=== PATIENT | male | born 1990 | race Caucasian/White ===

== ENCOUNTER → 2019-06-01 | Outpatient (REF) | payer OTHER | LOC: M SMT 13:36 | PROVIDERS: ATTEND Urology | DX: Z30.2 Encounter for sterilization (principal) ==

== ENCOUNTER → 2019-07-25 | Outpatient (REF) | payer OTHER ==
[2019-07-25 13:50] LABS: SEMEN APPEARANCE OPAQUE (OPAQUE); SEMEN VISCOSITY VISCOUS (LIQUID); WBC CONCENTRATION <=1 M/ml (<=1 M/ml)
== END ==
LOC: M SFHCPLAZ 12:54
PROVIDERS: ATTEND Urology
DX: Z98.52 Vasectomy status (principal)

== ENCOUNTER → 2019-09-17 | Outpatient (REF) | payer OTHER ==
[2019-09-17 11:20] LABS: SEMEN APPEARANCE OPAQUE (OPAQUE); SEMEN VOLUME 2.3 ml (2.0-5.0)
[2019-09-17 11:21] LABS: SEMEN VISCOSITY LIQUID (LIQUID); WBC CONCENTRATION <=1 M/ml (<=1 M/ml)
== END ==
LOC: M SMT 11:15
PROVIDERS: ATTEND Urology
DX: N46.9 Male infertility, unspecified (principal)

== ENCOUNTER → 2019-10-18 | Outpatient (CLI) | payer OTHER ==
--- NOTE | 2019-10-23 10:22 | SLEEPCENT ---
DATE OF STUDY: 10/18/2019 ORDERED BY: Zoya Peraza Nocturnal polysomnography was performed for evaluation of sleep physiology in this patient with a history of excessive somnolence and nonrestorative sleep. 7 hours and 6 minutes of data were reviewed. There were 395 minutes of sleep identified. Sleep latency was short at 3 minutes. Rapid eye movement (REM) latency was normal at 52 minutes. Sleep architecture was fragmented. There were some REM cycles noted. Overall sleep efficiency was 93.8%. The patient's electrocardiogram showed sinus rhythm with an average heart rate of 70 beats per minute. Electroencephalogram (EEG) showed normal waveforms for awake and sleep stages. There were 235 respiratory events identified of 10 seconds in duration or greater for an apnea-hypopnea index of 35.7. The events were primarily obstructive, not exclusive to sleep stage nor body posture. Arousals from respiratory events occurred 4.9 times per hour and oxygen desaturations were seen into the 80s. There was minimal activity in the limb EMG leads. Snoring was noted over the entire study. IMPRESSION: Obstructive sleep apnea syndrome (G47.33). Apnea-hypopnea index 35.7. RECOMMENDATION: The patient should be encouraged to return to the sleep disorder center for pressure therapy. In the interim, alcohol and sedative avoidance should be practiced and caution exercised during the operation of motor vehicles.
== END ==
LOC: M SLEEP 19:49
PROVIDERS: ATTEND Nurse Practitioner Adult Health
DX: G47.30 Sleep apnea, unspecified (principal)

== ENCOUNTER → 2019-10-26 | Outpatient (CLI) | payer OTHER ==
--- NOTE | 2019-10-30 09:28 | SLEEPCENT ---
DATE OF PROCEDURE: 10/26/2019 ORDERED BY: Zoya Peraza Nocturnal polysomnography was performed for the titration of pressure therapy in this patient with obstructive sleep apnea syndrome and apnea-hypopnea index of 35. For testing, the patient was fit with a ResMed Air Fit F30 full face mask of medium size and 5 cm of water pressure were applied to the circuit and the lights were extinguished. 6 hours and 57 minutes of data were reviewed. There were 279.5 minutes of sleep identified. Sleep latency was prolonged at 46 minutes. Rapid eye movement (REM) latency was normal at 57 minutes. Sleep architecture was fair to good with 2 REM cycles noted. Overall sleep efficiency was 67.8%. The patient's electrocardiogram showed a sinus rhythm with an average heart rate of 68 beats per minute. Electroencephalogram (EEG) showed normal waveforms for awake and sleep. Increases in C-PAP pressure resulted in the emergence of central events. These, however, were not associated with significant oxygen desaturation. Best sleep was seen on C-PAP at a pressure of +8. There was minimal activity in the limb leads. IMPRESSION: Obstructive sleep apnea syndrome (G47.33). RECOMMENDATION: Nightly use of pressure therapy at 8 cm of water appears to optimize sleep progression. There was some occurrence of central apneas which would warrant close clinical followup. Should the patient have persistence of symptoms, referral back to the sleep disorder center for second night of titration once he is accustomed to the device may be helpful.
== END ==
LOC: M SLEEP 19:35
PROVIDERS: ATTEND Nurse Practitioner Adult Health
DX: G47.33 Obstructive sleep apnea (adult) (pediatric) (principal)

== ENCOUNTER 2020-09-10 22:42 | Emergency (ER) | payer OTHER ==
[~2020-09-10] VITALS: Ht 182.9 cm; Wt 158.0 kg
[2020-09-10] MEDS ORDERED: ROSU10TA6 PO (23:01)
[2020-09-10 23:17] LABS: BASO # 0.1 10^3/uL (0.0-0.2); BASO % 0.6 % (0.0-1.0); EOS # 0.1 10^3/uL (0.0-0.5); EOS % 1.3 % (0.0-3.0); HEMATOCRIT 44.4 % (42.0-52.0); HEMOGLOBIN 14.6 g/dl (13.5-17.5); LYMPH # 2.3 10^3/uL (1.5-5.0); LYMPH % 25.6 % (24.0-44.0); MEAN CORPUSCULAR HEMOGLOBIN 28.2 pg (27.0-33.0); MEAN CORPUSCULAR HGB CONC 32.9 g/dl (32.0-36.5); MEAN CORPUSCULAR VOLUME 85.9 fl (80.0-96.0); MONO # 0.7 10^3/uL (0.0-0.8); MONO % 8.1 % (0.0-5.0); NEUTROPHILS # 5.7 10^3/uL (1.5-8.5); NEUTROPHILS % 64.1 % (36.0-66.0); PLATELET COUNT, AUTOMATED 205 10^3/uL (150-450); RED BLOOD COUNT 5.17 10^6/uL (4.30-6.10); WHITE BLOOD COUNT 8.9 10^3/uL (4.0-10.0)
[2020-09-10] MEDS ORDERED: KETOROLAC 30 MG/ML 1ML VIAL IV ONE (23:30)
--- NOTE | 2020-09-10 23:40 | REPVR ---
PROCEDURE INFORMATION: Exam: XR Chest, 1 View Exam date and time: 09/10/2020 11:07 PM Age: 30 years old Clinical indication: Chest pain TECHNIQUE: Imaging protocol: XR of the chest Views: 1 view. COMPARISON: No relevant prior studies available. FINDINGS: Lungs: Unremarkable. No consolidation. Pleural space: Unremarkable. No pleural effusion. No pneumothorax. Heart/Mediastinum: Unremarkable. No cardiomegaly. Bones/joints: Unremarkable. IMPRESSION: No acute findings. Electronically signed by: Valeriy Clarke On 09/10/2020 23:40:37 PM
[2020-09-10 23:47] LABS: ALBUMIN 3.8 GM/DL (3.2-5.2); ALT/SGPT 61 U/L (12-78); BILIRUBIN,DIRECT 0.2 MG/DL (0.0-0.2); BILIRUBIN,TOTAL 0.4 MG/DL (0.2-1.0); BLOOD UREA NITROGEN 18 MG/DL (7-18); CARBON DIOXIDE LEVEL 29 MEQ/L (21-32); CHLORIDE LEVEL 107 MEQ/L (98-107); CK-MB VALUE MASS 1.3 NG/ML (<3.6); CPK CREATINE PHOSPHOKINASE 225 U/L (39-308); CREATININE FOR GFR 1.04 MG/DL (0.70-1.30); GLOMERULAR FILTRATION RATE > 60.0 (>60); GLUCOSE, FASTING 114 MG/DL (70-100); LIPASE 173 U/L (73-393); MB/CK RELATIVE INDEX 0.58 (< OR =4); POTASSIUM SERUM 4.1 MEQ/L (3.5-5.1); SODIUM LEVEL 139 MEQ/L (136-145); TOTAL PROTEIN 7.1 GM/DL (6.4-8.2); TROPONIN I < 0.02 NG/ML (< 0.10)
[2020-09-11] MEDS ORDERED: NAPR-837 PO (01:08)
[2020-09-11 01:15] VITALS: BP 128/61
--- NOTE | 2020-09-12 08:00 | ECGEPIP ---
[facility] - ED Test Date: 2020-09-10 Pat Name: MAYNOR BOOTH Department: Room: - Gender: Male Assisted Living Care Manager: : 1990 Requested By: ANAMIKA Lowry Order Number: [id number] Reading MD: Arleen Serrano Measurements Intervals [place] Rate: 87 P: 37 GA: 170 QRS: 43 QRSD: 96 T: 7 QT: 363 QTc: 438 Interpretive Statements SINUS RHYTHM No prior Electronically Signed on 09-12-2020 8:00:31 EST by Arleen Serrano
== END 2020-09-11 01:26 | disposition home or self-care (01) ==
LOC: M ED 22:42
DX: R07.89 Other chest pain (principal); R06.02 Shortness of breath; E78.5 Hyperlipidemia, unspecified; Z79.899 Other long term (current) drug therapy
CPT/HCPCS: 71045; 80053; 82248; 82550; 82553; 83690; 84484; 85025; 93005; 93041; 94760; 96374; 99285; J1885

== ENCOUNTER → 2021-04-19 | Outpatient (CLI) | payer OTHER ==
[~2021-04-19] MED LIST: NAPR-837 PO; ROSU10TA6 PO
[2021-04-19 12:22] LABS: BASO % 0.7 % (0.0-1.0); EOS # 0.1 10^3/uL (0.0-0.5); EOS % 1.8 % (0.0-3.0); HEMATOCRIT 45.1 % (42.0-52.0); LYMPH # 1.8 10^3/uL (1.5-5.0); LYMPH % 31.7 % (24.0-44.0); MEAN CORPUSCULAR HEMOGLOBIN 28.2 pg (27.0-33.0); MEAN CORPUSCULAR HGB CONC 33.3 g/dl (32.0-36.5); MEAN CORPUSCULAR VOLUME 84.8 fl (80.0-96.0); MONO # 0.5 10^3/uL (0.0-0.8); MONO % 8.5 % (2.0-8.0); NEUTROPHILS # 3.2 10^3/uL (1.5-8.5); NEUTROPHILS % 57.1 % (36.0-66.0); PLATELET COUNT, AUTOMATED 212 10^3/uL (150-450); RED BLOOD COUNT 5.32 10^6/uL (4.30-6.10); WHITE BLOOD COUNT 5.6 10^3/uL (4.0-10.0)
[2021-04-19 12:52] LABS: ALBUMIN 4.3 GM/DL (3.2-5.2); ALT/SGPT 111 U/L (12-78); BLOOD UREA NITROGEN 13 MG/DL (7-18); CALCIUM LEVEL 9.5 MG/DL (8.5-10.1); CARBON DIOXIDE LEVEL 27 MEQ/L (21-32); CHLORIDE LEVEL 107 MEQ/L (98-107); CREATININE FOR GFR 0.95 MG/DL (0.70-1.30); GLOMERULAR FILTRATION RATE > 60.0 (>60); GLUCOSE, FASTING 93 MG/DL (70-100); POTASSIUM SERUM 4.2 MEQ/L (3.5-5.1); SODIUM LEVEL 141 MEQ/L (136-145); TOTAL PROTEIN 7.2 GM/DL (6.4-8.2)
== END ==
LOC: M LAB 11:54
PROVIDERS: ATTEND Internal Medicine
DX: E66.9 Obesity, unspecified (principal)

== ENCOUNTER → 2021-11-25 | Outpatient (REF) | payer OTHER | LOC: M LAB REF 16:34 | PROVIDERS: ATTEND Surgery | DX: D48.5 Neoplasm of uncertain behavior of skin (principal) ==

== ENCOUNTER → 2022-10-21 | Outpatient (CLI) | payer OTHER ==
[2022-10-21 11:02] LABS: HEMATOCRIT 47.4 % (42.0-52.0); HEMOGLOBIN 15.5 g/dl (13.5-17.5); MEAN CORPUSCULAR HEMOGLOBIN 27.5 pg (27.0-33.0); MEAN CORPUSCULAR HGB CONC 32.7 g/dl (32.0-36.5); PLATELET COUNT, AUTOMATED 246 10^3/uL (150-450); RED BLOOD COUNT 5.64 10^6/uL (4.30-6.10); WHITE BLOOD COUNT 7.8 10^3/uL (4.0-10.0)
[2022-10-21 11:29] LABS: ALBUMIN 4.2 G/DL (3.2-5.2); ALKALINE PHOSPHATASE 72 U/L (46-116); ALT/SGPT 52 U/L (7.0-40); AST/SGOT 26 U/L (<34); BILIRUBIN,TOTAL 0.8 MG/DL (0.3-1.2); BLOOD UREA NITROGEN 18 MG/DL (9-23); CALCIUM LEVEL 9.6 MG/DL (8.5-10.1); CARBON DIOXIDE LEVEL 29 MMOL/L (20-31); CHLORIDE LEVEL 103 MMOL/L (98-107); CHOLESTEROL LEVEL 231 MG/DL (<200); CHOLESTEROL RISK RATIO 6.29 (<5); CREATININE FOR GFR 0.93 MG/DL (0.70-1.30); GLOMERULAR FILTRATION RATE > 60.0 (>60); GLUCOSE, FASTING 95 MG/DL (60-100); HDL CHOLESTEROL 36.7 MG/DL (>40); LDL CHOLESTEROL 156.7 MG/DL (<100); NON-HDL-C 194 MG/DL; POTASSIUM SERUM 4.7 MMOL/L (3.5-5.1); SODIUM LEVEL 140 MMOL/L (136-145); TOTAL PROTEIN 7.2 G/DL (5.7-8.2); TRIGLYCERIDES LEVEL 188 MG/DL (<150)
== END ==
LOC: M WUC 09:04
PROVIDERS: ATTEND Internal Medicine
DX: E78.5 Hyperlipidemia, unspecified (principal); R07.89 Other chest pain

== ENCOUNTER 2022-11-07 21:09 | Emergency (ER) | payer OTHER ==
[~2022-11-07] VITALS: Ht 182.9 cm; Wt 160.4 kg
[2022-11-07 21:11] VITALS: BP 146/79
[2022-11-07] MEDS ORDERED: OMEP1CAP73 PO (21:17)
[2022-11-07] MEDS ORDERED: ROSU20TA5 PO (21:17)
[2022-11-07 21:55] LABS: BASO # 0.1 10^3/uL (0.0-0.2); BASO % 0.9 % (0.0-1.0); EOS # 0.2 10^3/uL (0.0-0.5); EOS % 1.8 % (0.0-3.0); HEMATOCRIT 46.3 % (42.0-52.0); HEMOGLOBIN 14.9 g/dl (13.5-17.5); LYMPH # 2.3 10^3/uL (1.5-5.0); MEAN CORPUSCULAR HEMOGLOBIN 27.1 pg (27.0-33.0); MEAN CORPUSCULAR HGB CONC 32.2 g/dl (32.0-36.5); MEAN CORPUSCULAR VOLUME 84.2 fl (80.0-96.0); MONO # 0.9 10^3/uL (0.0-0.8); MONO % 9.6 % (2.0-8.0); NEUTROPHILS # 5.4 10^3/uL (1.5-8.5); NEUTROPHILS % 61.2 % (36.0-66.0); PLATELET COUNT, AUTOMATED 211 10^3/uL (150-450); WHITE BLOOD COUNT 8.9 10^3/uL (4.0-10.0)
[2022-11-07 22:16] LABS: LIPASE 52 U/L (12-53)
[2022-11-07 22:17] LABS: CK-MB VALUE MASS < 1.0 NG/ML (<3.6)
[2022-11-07 22:18] LABS: BLOOD UREA NITROGEN 16 MG/DL (9-23); CALCIUM LEVEL 9.9 MG/DL (8.5-10.1); CARBON DIOXIDE LEVEL 28 MMOL/L (20-31); CHLORIDE LEVEL 108 MMOL/L (98-107); CPK CREATINE PHOSPHOKINASE 171 U/L (46-171); CREATININE FOR GFR 0.99 MG/DL (0.70-1.30); GLOMERULAR FILTRATION RATE > 60.0 (>60); GLUCOSE, FASTING 90 MG/DL (60-100); MB/CK RELATIVE INDEX 0.58 (< OR =4); POTASSIUM SERUM 4.2 MMOL/L (3.5-5.1); SODIUM LEVEL 143 MMOL/L (136-145)
[2022-11-08] MEDS ORDERED: ISOVUE-370 76% 100ML VIAL As Ordered ONE (00:09)
[2022-11-08 01:16] LABS: RSV AMPLIFICATION NEGATIVE (NEGATIVE)
[2022-11-08] MEDS ORDERED: GI COCKTAIL 50ML BTL(HYOSCYAMINE/MAALOX/LIDOCAINE VISCOUS)(1:3:1) PO ONE (02:00)
[2022-11-08 02:30] VITALS: O2SAT 95
== END 2022-11-08 03:12 | disposition home or self-care (01) ==
LOC: M ED 21:09
DX: R07.89 Other chest pain (principal); E78.5 Hyperlipidemia, unspecified; K21.9 Gastro-esophageal reflux disease without esophagitis; G47.33 Obstructive sleep apnea (adult) (pediatric)

== ENCOUNTER → 2024-03-21 | Outpatient (CLI) | payer OTHER ==
[~2024-03-21] MED LIST changes: +OMEP1CAP73 PO; -ROSU10TA6 PO; +ROSU10TA61 PO; +ROSU20TA61 PO
[2024-03-21 12:43] LABS: BASO # 0.1 10^3/uL (0.0-0.2); BASO % 0.7 % (0.0-1.0); EOS # 0.1 10^3/uL (0.0-0.5); EOS % 1.1 % (0.0-3.0); HEMATOCRIT 47.7 % (42.0-52.0); HEMOGLOBIN 15.6 g/dl (13.5-17.5); LYMPH # 2.2 10^3/uL (1.5-5.0); LYMPH % 25.5 % (24.0-44.0); MEAN CORPUSCULAR HEMOGLOBIN 27.7 pg (27.0-33.0); MEAN CORPUSCULAR HGB CONC 32.7 g/dl (32.0-36.5); MEAN CORPUSCULAR VOLUME 84.6 fl (80.0-96.0); MONO # 0.6 10^3/uL (0.0-0.8); MONO % 7.2 % (2.0-8.0); NEUTROPHILS # 5.7 10^3/uL (1.5-8.5); NEUTROPHILS % 64.8 % (36.0-66.0); PLATELET COUNT, AUTOMATED 232 10^3/uL (150-450); RED BLOOD COUNT 5.64 10^6/uL (4.30-6.10); WHITE BLOOD COUNT 8.8 10^3/uL (4.0-10.0)
[2024-03-21 13:13] LABS: THYROID STIMULATING HORMONE 2.423 uIU/ML (0.55-4.78)
[2024-03-21 13:16] LABS: ALKALINE PHOSPHATASE 72 U/L (46-116); ALT/SGPT 53 U/L (7.0-40); AST/SGOT 17 U/L (<34); BILIRUBIN,TOTAL 1.1 MG/DL (0.3-1.2); BLOOD UREA NITROGEN 14 MG/DL (9-23); CALCIUM LEVEL 9.5 MG/DL (8.5-10.1); CARBON DIOXIDE LEVEL 30 MMOL/L (20-31); CHLORIDE LEVEL 104 MMOL/L (98-107); CHOLESTEROL LEVEL 178 MG/DL (<200); CHOLESTEROL RISK RATIO 4.52 (<5); CREATININE FOR GFR 0.86 MG/DL (0.70-1.30); GLOMERULAR FILTRATION RATE > 60.0 (>60); GLUCOSE, FASTING 82 MG/DL (60-100); HDL CHOLESTEROL 39.3 MG/DL (>40); LDL CHOLESTEROL 104.3 MG/DL (<100); NON-HDL-C 138.7 MG/DL; POTASSIUM SERUM 4.4 MMOL/L (3.5-5.1); SODIUM LEVEL 141 MMOL/L (136-145); TRIGLYCERIDES LEVEL 172 MG/DL (<150)
== END ==
LOC: M WUC 10:05
PROVIDERS: ATTEND Internal Medicine
DX: R53.83 Other fatigue (principal)

== ENCOUNTER 2024-06-21 11:33 | Emergency (ER) | payer OTHER ==
[~2024-06-21] VITALS: Ht 182.9 cm; Wt 160.8 kg
[2024-06-21 12:45] LABS: BASO # 0.1 10^3/uL (0.0-0.2); BASO % 0.6 % (0.0-1.0); EOS # 0.1 10^3/uL (0.0-0.5); EOS % 0.8 % (0.0-3.0); HEMATOCRIT 45.5 % (42.0-52.0); HEMOGLOBIN 15.1 g/dl (13.5-17.5); LYMPH # 1.8 10^3/uL (1.5-5.0); MEAN CORPUSCULAR HGB CONC 33.2 g/dl (32.0-36.5); MEAN CORPUSCULAR VOLUME 81.4 fl (80.0-96.0); MONO # 0.6 10^3/uL (0.0-0.8); MONO % 8.2 % (2.0-8.0); NEUTROPHILS # 5.3 10^3/uL (1.5-8.5); NEUTROPHILS % 66.9 % (36.0-66.0); PLATELET COUNT, AUTOMATED 245 10^3/uL (150-450); RED BLOOD COUNT 5.59 10^6/uL (4.30-6.10); WHITE BLOOD COUNT 7.8 10^3/uL (4.0-10.0)
[2024-06-21] MEDS ORDERED: ONDANSETRON 4MG ORAL DISINTEGRATING TAB PO ONE (12:55)
[2024-06-21] MEDS: KETOROLAC 30 MG/ML 1ML VIAL IV ONE (13:03)
[2024-06-21] MEDS: ONDANSETRON 4MG 2ML VIAL IV ONE (13:04)
[2024-06-21] MEDS: NS 1,000 ML IV ONE (13:04)
[2024-06-21 13:07] LABS: ALBUMIN 4.1 G/DL (3.2-5.2); BILIRUBIN,DIRECT 0.2 MG/DL (<0.4); BILIRUBIN,TOTAL 0.6 MG/DL (0.3-1.2); TOTAL PROTEIN 7.1 G/DL (5.7-8.2)
[2024-06-21] MEDS ORDERED: ISOVUE-370 76% 100ML VIAL As Ordered ONE (13:12)
[2024-06-21 13:17] VITALS: BP 140/80; TEMP 97.9; O2SAT 97
[2024-06-21 13:52] LABS: INR 1.04; PARTIAL THROMBOPLASTIN TIME 30.1 SECONDS (24.8-34.2); PROTHROMBIN TIME 13.3 SECONDS (12.5-14.5)
== END 2024-06-21 15:13 | disposition home or self-care (01) ==
LOC: M ED 11:33
DX: K57.92 Diverticulitis of intestine, part unspecified, without perforation or abscess without bleeding (principal); K42.9 Umbilical hernia without obstruction or gangrene; K21.9 Gastro-esophageal reflux disease without esophagitis; E78.5 Hyperlipidemia, unspecified; F10.10 Alcohol abuse, uncomplicated; Z79.899 Other long term (current) drug therapy
CPT/HCPCS: 74177; 80047; 80076; 81001; 83605; 83690; 85025; 85610; 85730; 96361; 96374; 96375; 99284; J1885; J2405; Q9967

== ENCOUNTER → 2024-07-22 | Outpatient (CLI) | payer OTHER ==
[~2024-07-22] MED LIST changes: -ROSU20TA61 PO; +ROSU20TA86 PO
== END ==
LOC: M SLEEP 20:00
PROVIDERS: ATTEND Nurse Practitioner Adult Health
DX: G47.33 Obstructive sleep apnea (adult) (pediatric) (principal)

== ENCOUNTER → 2024-08-15 | Outpatient (CLI) | payer OTHER | LOC: M WUC 14:05 | PROVIDERS: ATTEND Internal Medicine | DX: R05.1 Acute cough (principal) ==

== ENCOUNTER 2024-10-18 06:02 | Day surgery (SDC) | payer OTHER ==
[~2024-10-18] VITALS: Ht 182.9 cm; Wt 163.1 kg
[~2024-10-18 06:02] MED LIST changes: +ALBU8.5H; +VENL75TA2 PO; +[UNRECOGNIZED DRUG - CODE] PO
[2024-10-18] MEDS ORDERED: fentaNYL 100 MCG/2 ML INJECTION As Ordered ONE (06:13)
[2024-10-18] MEDS ORDERED: MIDAZOLAM INJ 2MG/2ML VIAL As Ordered ONE (06:13)
[2024-10-18] MEDS ORDERED: ROCURONIUM BROMIDE 50MG/5ML VIAL As Ordered ONE (06:14)
[2024-10-18] MEDS ORDERED: GLYCOPYRROLATE INJ 0.2 MG/ML 2 ML VIAL As Ordered ONE (06:14)
[2024-10-18] MEDS ORDERED: propofoL 200 MG/20 ML VIAL As Ordered ONE (06:14)
[2024-10-18] MEDS ORDERED: LIDOCAINE 2% 100MG/5ML SDV (FOR ANES.) As Ordered ONE (06:14)
[2024-10-18] MEDS ORDERED: ONDANSETRON 4MG 2ML VIAL As Ordered ONE (06:14)
[2024-10-18] MEDS ORDERED: KETOROLAC 60MG 2ML VIAL As Ordered ONE (06:15)
[2024-10-18] MEDS ORDERED: SUGAMMADEX SODIUM 500 MG/5 ML VIAL (BRIDION) As Ordered ONE (06:33)
[2024-10-18] MEDS ORDERED: LR 1,000 ML IV SCH (06:35)
[2024-10-18] MEDS ORDERED: CVS1CAP2 PO (06:40)
[2024-10-18] MEDS ORDERED: ACETAMINOPHEN 1000MG/100ML IV BAG As Ordered ONE (07:17)
[2024-10-18] MEDS ORDERED: ceFAZolin SOD 3 GM in IV 1 EA IV ONE (07:20)
[2024-10-18] MEDS: ceFAZolin SOD 2 GM in IV 1 EA IV ONE (07:42)
[2024-10-18] MEDS: ceFAZolin SOD 1 GM in DEXTROSE 5% (D5W) ADV/MINI-BAG 50 ML IV ONE (07:42)
[2024-10-18] MEDS ORDERED: dexmedeTOMIDine (4MCG/ML)200MCG/50ML BTL (PRECEDEX) As Ordered ONE (08:41)
[2024-10-18] MEDS ORDERED: ONDANSETRON 4MG 2ML VIAL IV PRN (09:00)
[2024-10-18] MEDS: fentaNYL 100 MCG/2 ML INJECTION IV PRN (10:18)
[2024-10-18] MEDS: oxyCODONE 5MG TAB PO PRN (11:39)
[2024-10-18 12:30] VITALS: BP 118/68; TEMP 97; O2SAT 93
== END 2024-10-18 11:11 | disposition home or self-care (01) ==
LOC: M SDC 06:02
PROVIDERS: ATTEND Surgery
DX: K42.0 Umbilical hernia with obstruction, without gangrene (principal); G47.30 Sleep apnea, unspecified; Z79.899 Other long term (current) drug therapy
CPT/HCPCS: 49593; C1781; J0131; J0665; J0690; J1100; J1596; J1885; J2250; J2405; J3010; S2900

== ENCOUNTER → 2025-01-28 | Outpatient (CLI) | payer OTHER ==
[~2025-01-28] MED LIST changes: +CVS1CAP2 PO
[2025-01-28 14:22] LABS: ALBUMIN 4.1 G/DL (3.2-5.2); ALKALINE PHOSPHATASE 71 U/L (40-129); ALT/SGPT 70 U/L (7.0-40); AST/SGOT 34 U/L (<34); BILIRUBIN,TOTAL 0.7 MG/DL (0.3-1.2); BLOOD UREA NITROGEN 15 MG/DL (9-23); CALCIUM LEVEL 9.5 MG/DL (8.5-10.1); CARBON DIOXIDE LEVEL 29 MMOL/L (20-31); CHLORIDE LEVEL 105 MMOL/L (98-107); CHOLESTEROL LEVEL 221 MG/DL (<200); CHOLESTEROL RISK RATIO 5.71 (<5); CREATININE FOR GFR 1.01 MG/DL (0.70-1.30); GLOMERULAR FILTRATION RATE > 90.0 (>60); GLUCOSE, FASTING 81 MG/DL (60-100); HDL CHOLESTEROL 38.7 MG/DL (>40); LDL CHOLESTEROL 144.7 MG/DL (<100); NON-HDL-C 182.3 MG/DL; POTASSIUM SERUM 4.4 MMOL/L (3.5-5.1); SODIUM LEVEL 143 MMOL/L (136-145); TOTAL PROTEIN 7.2 G/DL (5.7-8.2); TRIGLYCERIDES LEVEL 188 MG/DL (<150)
== END ==
LOC: M WUC 11:38
PROVIDERS: ATTEND Internal Medicine
DX: E78.5 Hyperlipidemia, unspecified (principal)

== ENCOUNTER → 2025-02-28 | Outpatient (CLI) | payer OTHER ==
[2025-02-28 13:41] LABS: GC DNA AMPLIFICATION NEGATIVE (NEGATIVE)
[2025-02-28 16:11] LABS: Trichomonas vaginalis (AMP) NOT DETECTED (NEGATIVE)
== END ==
LOC: M RAD 10:39
PROVIDERS: ATTEND Student in an Organized Health Care Education/Training Program
DX: N50.811 Right testicular pain (principal)